=== PATIENT | female | born 1970 | race Caucasian/White ===

== ENCOUNTER 2016-08-15 17:21 | Emergency (ER) | payer MEDICAID, MEDICARE ==
[~2016-08-15] VITALS: Ht 160 cm; Wt 99.0 kg
[~2016-08-15 17:21] MED LIST: ASPI-556 PO; CINA30 PO; FENO67 PO; GABA-529 PO; INSLAN SQ; INSU100C3 SQ; LEVO50 PO; METO5TAB95 PO; OMEP10 PO; SEVE800T PO; SIMV-261 PO; SODI650T PO; VITAD1000 PO
[2016-08-15] MEDS ORDERED: CALC-1174 PO (17:38)
[2016-08-15 17:41] LABS: GLUCOSE,POINT OF CARE 318 MG/DL (70-110)
[2016-08-15 18:04] LABS: BASOPHILS # (AUTO) 0.08 K/uL (0.00-0.20); EOSINOPHILS # (AUTO) 0.05 K/uL (0.00-0.70); EOSINOPHILS % (AUTO) 0.57 % (1.0-6.0); HEMATOCRIT 35.5 % (36-46); HEMOGLOBIN 11.8 g/dL (12.0-16.0); LYMPHOCYTES # (AUTO) 2.4 K/uL (1.0-4.8); LYMPHOCYTES % (AUTO) 27.1 % (22.0-44.0); MEAN CORPUSCULAR HEMOGLOBIN 32.1 pg (26.0-34.0); MEAN CORPUSCULAR HGB CONC 33.3 G/dL (31.0-37.0); MEAN CORPUSCULAR VOLUME 96 fL (80-100); MONOCYTES # (AUTO) 0.6 K/uL (0.1-1.0); MONOCYTES % (AUTO) 6.6 % (2.0-9.0); NEUTROPHILS # (AUTO) 5.8 K/uL (1.8-7.7); NEUTROPHILS % (AUTO) 64.9 % (40.0-70.0); PLATELET COUNT (AUTO) 241 K/uL (150-450); RED BLOOD CELL COUNT(AUTO) 3.69 MIL/uL (4.00-5.20); RED CELL DISTRIBUTION WIDTH 18.5 % (11.5-14.5)
[2016-08-15 18:13] LABS: CALCIUM, TOTAL 6.7 mg/dL (8.8-10.5); CREATININE 7.27 mg/dL (0.60-1.30); POTASSIUM 4.1 mmol/L (3.5-5.1)
[2016-08-15 18:17] LABS: ALBUMIN 3.7 g/dL (3.4-5.0); BILIRUBIN,TOTAL 0.4 mg/dL (0.1-1.0); TOTAL PROTEIN, SERUM 8.3 g/dL (6.4-8.2)
[2016-08-15] MEDS ORDERED: CALCIUM GLUCONATE 100 MG/ML 10 ML IVP ONE (23:30)
[2016-08-16] MEDS: CALCIUM GLUCONATE 100 MG/ML 10 ML IVP ONE ×2 (01:01→01:29)
[2016-08-16 01:30] VITALS: BP 112/75
[2016-08-16] MEDS ORDERED: ONDANSETRON HCL 4 MG TABLET PO ONE (01:30)
[2016-08-16] MEDS ORDERED: HYDROCODONE/ACETAMINOPHEN 5-325 MG TABLET PO ONE (01:30)
== END 2016-08-16 01:54 | disposition home or self-care (01) ==
LOC: EMS 17:27
DX: E83.51 Hypocalcemia (principal); I13.2 Hypertensive heart and chronic kidney disease with heart failure and with stage 5 chronic kidney disease, or end stage renal disease; E11.22 Type 2 diabetes mellitus with diabetic chronic kidney disease; N18.6 End stage renal disease; I50.9 Heart failure, unspecified; E11.65 Type 2 diabetes mellitus with hyperglycemia; E03.9 Hypothyroidism, unspecified; E78.00 Pure hypercholesterolemia, unspecified; K21.9 Gastro-esophageal reflux disease without esophagitis; Z79.4 Long term (current) use of insulin; Z99.2 Dependence on renal dialysis
CPT/HCPCS: 36415; 80053; 82962; 83690; 85025; 96374; 99284; J0610

== ENCOUNTER 2017-06-30 10:55 | Emergency (ER) | payer OTHER ==
[~2017-06-30] VITALS: Ht 160 cm; Wt 100.0 kg
[~2017-06-30 10:55] MED LIST changes: +CALC-1174 PO; -GABA-529 PO; -INSLAN SQ; -METO5TAB95 PO; +SEVE800 PO; -SEVE800T PO; -SODI650T PO
[2017-06-30 11:02] LABS: GLUCOSE,POINT OF CARE 168 MG/DL (70-110)
[2017-06-30 11:42] LABS: BASOPHILS % (AUTO) 0.4 % (0.0-2.0); EOSINOPHILS % (AUTO) 1.4 % (1.0-6.0); HEMATOCRIT 31.4 % (36-46); HEMOGLOBIN 10.8 g/dL (12.0-16.0); LYMPHOCYTES # (AUTO) 1.1 K/uL (1.0-4.8); LYMPHOCYTES % (AUTO) 25.5 % (22.0-44.0); MEAN CORPUSCULAR HEMOGLOBIN 33.5 pg (26.0-34.0); MEAN CORPUSCULAR HGB CONC 34.3 G/dL (31.0-37.0); MEAN CORPUSCULAR VOLUME 98 fL (80-100); MONOCYTES # (AUTO) 0.5 K/uL (0.1-1.0); NEUTROPHILS # (AUTO) 2.6 K/uL (1.8-7.7); NEUTROPHILS % (AUTO) 60.7 % (40.0-70.0); PLATELET COUNT (AUTO) 140 K/uL (150-450); RED BLOOD CELL COUNT(AUTO) 3.22 MIL/uL (4.00-5.20)
[2017-06-30 11:50] LABS: CALCIUM, TOTAL 8.2 mg/dL (8.8-10.5); CREATININE 6.22 mg/dL (0.60-1.30); POTASSIUM 3.5 mmol/L (3.5-5.1)
[2017-06-30 11:56] LABS: ALBUMIN 3.2 g/dL (3.4-5.0); BILIRUBIN,TOTAL 0.5 mg/dL (0.1-1.0); TOTAL PROTEIN, SERUM 7.3 g/dL (6.4-8.2)
[2017-06-30] MEDS ORDERED: ALBUTEROL SULFATE 2.5 MG/0.5 ML NEB SOLUTION NEB ONE (12:00)
[2017-06-30] MEDS ORDERED: IPRATROPIUM BROMIDE 0.5 MG/2.5 ML NEB SOLUTION NEB ONE (12:00)
[2017-06-30 12:28] LABS: INFLUENZA TYPE A POSITIVE FOR TYPE A (NEGATIVE); INFLUENZA TYPE B NEGATIVE FOR TYPE B (NEGATIVE)
[2017-06-30] MEDS ORDERED: OSELTAMIVIR PHOSPHATE 30 MG CAPSULE PO ONE (12:45)
[2017-06-30 13:16] VITALS: BP 100/55
== END 2017-06-30 13:18 | disposition home or self-care (01) ==
LOC: EMS 10:58
DX: J09.X2 Influenza due to identified novel influenza A virus with other respiratory manifestations (principal); I11.0 Hypertensive heart disease with heart failure; I50.9 Heart failure, unspecified; E78.00 Pure hypercholesterolemia, unspecified; E03.9 Hypothyroidism, unspecified; E11.9 Type 2 diabetes mellitus without complications; K21.9 Gastro-esophageal reflux disease without esophagitis
CPT/HCPCS: 36415; 71046; 80053; 82962; 83880; 84484; 85025; 87804; 94640; 99285; J7613; Z7610

== ENCOUNTER 2017-09-02 16:14 | Emergency (ER) | payer OTHER ==
[~2017-09-02] VITALS: Ht 157.5 cm; Wt 90.9 kg
[~2017-09-02 16:14] MED LIST changes: -ASPI-556 PO
[2017-09-02 16:22] LABS: GLUCOSE,POINT OF CARE 159 MG/DL (70-110)
[2017-09-02] MEDS ORDERED: 0.9% SODIUM CHLORIDE 10 ML SYRINGE IVP PRN (17:45)
[2017-09-02 18:07] LABS: BASOPHILS % (AUTO) 0.7 % (0.0-2.0); EOSINOPHILS % (AUTO) 0.6 % (1.0-6.0); HEMATOCRIT 33.4 % (36-46); HEMOGLOBIN 11.6 g/dL (12.0-16.0); LYMPHOCYTES # (AUTO) 1.4 K/uL (1.0-4.8); LYMPHOCYTES % (AUTO) 15.2 % (22.0-44.0); MEAN CORPUSCULAR HEMOGLOBIN 33.1 pg (26.0-34.0); MEAN CORPUSCULAR HGB CONC 34.6 G/dL (31.0-37.0); MEAN CORPUSCULAR VOLUME 95 fL (80-100); MONOCYTES # (AUTO) 0.4 K/uL (0.1-1.0); MONOCYTES % (AUTO) 3.9 % (2.0-9.0); NEUTROPHILS # (AUTO) 7.4 K/uL (1.8-7.7); NEUTROPHILS % (AUTO) 79.6 % (40.0-70.0); PLATELET COUNT (AUTO) 237 K/uL (150-450); RED CELL DISTRIBUTION WIDTH 16.3 % (11.5-14.5)
[2017-09-02 18:20] LABS: CALCIUM, TOTAL 8.7 mg/dL (8.8-10.5); CREATININE 8.59 mg/dL (0.60-1.30); POTASSIUM 3.2 mmol/L (3.5-5.1)
[2017-09-02 18:26] LABS: ALBUMIN 3.3 g/dL (3.4-5.0); BILIRUBIN,TOTAL 0.5 mg/dL (0.1-1.0); TOTAL PROTEIN, SERUM 7.8 g/dL (6.4-8.2)
[2017-09-02 18:29] LABS: LACTIC ACID 0.8 mmol/L (0.4-2.0)
[2017-09-02] MEDS ORDERED: CefTRIAXone SODIUM 1 GM/VIAL IM ONE ×3 (19:00)
[2017-09-02] MEDS ORDERED: LIDOCAINE HCL 1% 10 ML VIAL INJ ONE (19:15)
[2017-09-02 19:49] VITALS: BP 119/67
== END 2017-09-02 19:52 | disposition home or self-care (01) ==
LOC: EMS 16:16
DX: T82.898A Other specified complication of vascular prosthetic devices, implants and grafts, initial encounter (principal); E03.9 Hypothyroidism, unspecified; E11.9 Type 2 diabetes mellitus without complications; E78.00 Pure hypercholesterolemia, unspecified; I11.0 Hypertensive heart disease with heart failure; I50.9 Heart failure, unspecified; K21.9 Gastro-esophageal reflux disease without esophagitis; Z99.2 Dependence on renal dialysis; Y84.1 Kidney dialysis as the cause of abnormal reaction of the patient, or of later complication, without mention of misadventure at the time of the procedure
CPT/HCPCS: 36415; 80053; 82962; 83605; 85025; 87040; 96372; 99284; J0696; J3490

== ENCOUNTER 2017-12-19 22:01 | Emergency (ER) | payer OTHER ==
[~2017-12-19] VITALS: Ht 162.6 cm; Wt 91.0 kg
[~2017-12-19 22:01] MED LIST changes: -CINA30 PO; +CYAN250014 PO; -INSU100C3 SQ; -SEVE800 PO
[2017-12-19] MEDS ORDERED: ACETAMINOPHEN 325 MG TABLET PO ONE (23:45)
[2017-12-20 00:44] VITALS: BP 118/62
== END 2017-12-20 01:36 | disposition home or self-care (01) ==
LOC: EMS 22:01
DX: S16.1XXA Strain of muscle, fascia and tendon at neck level, initial encounter (principal); S09.90XA Unspecified injury of head, initial encounter; I13.2 Hypertensive heart and chronic kidney disease with heart failure and with stage 5 chronic kidney disease, or end stage renal disease; E11.22 Type 2 diabetes mellitus with diabetic chronic kidney disease; N18.6 End stage renal disease; I50.9 Heart failure, unspecified; K21.9 Gastro-esophageal reflux disease without esophagitis; E78.00 Pure hypercholesterolemia, unspecified; E03.9 Hypothyroidism, unspecified; Z99.2 Dependence on renal dialysis; W01.0XXA Fall on same level from slipping, tripping and stumbling without subsequent striking against object, initial encounter; Y93.89 Activity, other specified; Y92.89 Other specified places as the place of occurrence of the external cause; Y99.8 Other external cause status
CPT/HCPCS: 70450; 72125; 99284

== ENCOUNTER 2021-09-15 09:27 | Day surgery (SDC) | payer OTHER ==
[2021-09-14 09:28] LABS: COVID AG,FIA SOURCE NASAL SWAB
[~2021-09-15] VITALS: Ht 160 cm; Wt 74.1 kg
[~2021-09-15 09:27] MED LIST changes: +ALEN70TA65 PO; +ATOR10TA69 PO; +BACTSS PO; -CALC-1174 PO; +DULA4.5P SQ; -FENO67 PO; +INSU100I26 SQ; +LUBI24CA9 PO; +METO10TA3 PO; +MYCO250C27 PO; +OMEG-189 PO; -OMEP10 PO; +OMEP20CA13 PO; -SIMV-261 PO; +SODIUM CHLORIDE 0.9% 1,000 ML ONE; -VITAD1000 PO
[2021-09-15] MEDS ORDERED: ERGO500054 PO (09:43)
[2021-09-15] MEDS ORDERED: TACR1CAP12 PO (09:43)
[2021-09-15] MEDS ORDERED: PRED-549 PO (09:43)
[2021-09-15 10:26] LABS: GLUCOMETER DEV NAME(LOC) SDS.; GLUCOSE,POINT OF CARE 140 MG/DL (70-110)
[2021-09-15] MEDS ORDERED: SODIUM CHLORIDE 0.9% 1,000 ML IV ONE (10:30)
[2021-09-15] MEDS ORDERED: LIDOCAINE/PF 2% 5 ML VIAL IM ONE (12:00)
[2021-09-15] MEDS ORDERED: PROPOFOL 1% 20 ML VIAL IVP ONE (12:00)
== END 2021-09-15 14:00 | disposition home or self-care (01) ==
LOC: SURGERY 09:27
PROVIDERS: ATTEND Internal Medicine Gastroenterology
DX: K31.4 Gastric diverticulum (principal); K31.89 Other diseases of stomach and duodenum; D64.9 Anemia, unspecified; Z79.899 Other long term (current) drug therapy; Z87.891 Personal history of nicotine dependence; Z98.890 Other specified postprocedural states; Z20.822 Contact with and (suspected) exposure to COVID-19; Z94.0 Kidney transplant status; Z88.6 Allergy status to analgesic agent; Z88.1 Allergy status to other antibiotic agents; E66.9 Obesity, unspecified
CPT/HCPCS: 43245; 82962; 84703; 87426; C9803; J2704; J3490; J7030

== ENCOUNTER → 2022-09-11 | Day surgery (SDC) | payer OTHER ==
[2022-09-08 10:29] LABS: COVID AG,FIA SOURCE NASAL SWAB
[~2022-09-11] VITALS: Ht 160 cm; Wt 65.9 kg
[~2022-09-11] MED LIST changes: +DEXTROSE 50%-WATER 25 GM/50 ML SYRINGE IVP ONE; +ERGO500054 PO; +PRED-549 PO; +SODIUM CHLORIDE 0.9% 1,000 ML IV ONE; -SODIUM CHLORIDE 0.9% 1,000 ML ONE; +TACR1CAP12 PO
[2022-09-11 08:01] LABS: GLUCOMETER DEV NAME(LOC) SDS.; GLUCOSE,POINT OF CARE 49 MG/DL (70-110)
[2022-09-11 09:01] LABS: GLUCOMETER DEV NAME(LOC) SDS.; GLUCOSE,POINT OF CARE 53 MG/DL (70-110)
== END | disposition home or self-care (01) ==
LOC: SURGERY 06:59
PROVIDERS: ATTEND Internal Medicine Gastroenterology
DX: R13.10 Dysphagia, unspecified (principal); Z53.8 Procedure and treatment not carried out for other reasons; Z20.822 Contact with and (suspected) exposure to COVID-19
CPT/HCPCS: 87426; 82962; C9803